=== PATIENT | male | born 1975 | race African-American/Black ===

== ENCOUNTER 2017-09-17 23:25 | Emergency (ER) | payer OTHER ==
[~2017-09-17] VITALS: Ht 180.3 cm; Wt 127.0 kg
--- NOTE | ~2017-09-17 | EKG ---
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 : 1975 Requested By: Camden Cantu Order Number: [id number] MD: Darian Coates Measurements Intervals [place] Rate: 102 P: -2 VT: 134 QRS: -59 QRSD: 90 T: 40 QT: 348 QTc: 454 Interpretive Statements Sinus tachycardia LAD Abnormal R-wave progression, late transition No previous ECG available for comparison Electronically Signed On 09-18-2017 8:08:00 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
[~2017-09-17 23:25] MED LIST: DOXYCYCLINE 10100 M1 PO; DOXYCYCLINE 10100 MG PO; NORCO 5-325 TA1 EACH PO; ULTRAM 50MG TAB50 MG PO
[2017-09-17 23:51] LABS: HEMATOCRIT 44.8 % (42.0-52.0); HEMOGLOBIN 15.4 gm/dL (14.0-18.0); MCH 29.4 pg (26.0-34.0); MCHC 34.3 g/dL (28.0-37.0); MCV 85.5 fL (80.0-100.0); RBC 5.24 mil/uL (4.50-6.00); RDW 14.4 % (10.5-14.5); WBC 6.5 thou/uL (4.0-11.0)
[2017-09-17 23:59] LABS: ANION GAP 6 mmol/L (7-16); BUN 10 mg/dL (7-18); CALCIUM 8.8 mg/dL (8.5-10.1); CHLORIDE 103 mmol/L (98-107); CO2 26 mmol/L (21-32); CREATININE 0.9 mg/dL (0.7-1.3); GLUCOSE 199 mg/dL (74-106); POTASSIUM 3.6 mmol/L (3.5-5.1); SODIUM 135 mmol/L (136-145)
[2017-09-18 00:08] LABS: TROPONIN-I < 0.04 ng/mL (<0.06)
== END 2017-09-18 01:59 | disposition home or self-care (01) ==
LOC: ER 23:25
PROVIDERS: Emergency Medicine
DX: H11.31 Conjunctival hemorrhage, right eye (principal); R00.2 Palpitations

== ENCOUNTER 2021-07-12 22:25 | Emergency (ER) | payer OTHER ==
[~2021-07-12] VITALS: Ht 180.3 cm; Wt 181.4 kg
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
[2021-07-13 00:06] LABS: HEMOGLOBIN 14.2 gm/dL (14.0-18.0); RBC 4.83 mil/uL (4.50-6.00)
[2021-07-13 00:08] LABS: ABSOLUTE NEUTROPHILS 2.9 thou/uL (1.4-8.2); EOSINOPHILS 2.7 % (0.0-3.0); HEMATOCRIT 42.6 % (42.0-52.0); LYMPHOCYTES 38.1 % (24.0-44.0); MCH 29.3 pg (26.0-34.0); MCHC 33.2 g/dL (28.0-37.0); MCV 88.2 fL (80.0-100.0); MONOCYTES 9.8 % (1.0-8.0); PLATELET COUNT 311 thou/uL (150-400); POLYS 48.4 % (36.0-66.0); RDW 14.1 % (10.5-14.5)
[2021-07-13 00:20] LABS: ANION GAP 9 mmol/L (7-16); BUN 10 mg/dL (7-18); CALCIUM 9.3 mg/dL (8.5-10.1); CHLORIDE 105 mmol/L (98-107); CO2 28 mmol/L (21-32); GLUCOSE 128 mg/dL (74-106); POTASSIUM 3.8 mmol/L (3.5-5.1); SODIUM 142 mmol/L (136-145)
[2021-07-13 00:26] LABS: ALBUMIN 3.5 g/dL (3.4-5.0); DIRECT BILIRUBIN < 0.1 mg/dL (<0.1-0.2); LIPASE 52 U/L (73-393); SGOT 22 U/L (15-37); SGPT 42 U/L (16-63); TOTAL BILIRUBIN 0.4 mg/dL (0.2-1.0); TOTAL PROTEIN 6.9 g/dL (6.4-8.2)
[2021-07-13 02:00] VITALS: BP 112/71
[2021-07-13] MEDS ORDERED: MUPIROCIN1 GM TOP (04:36)
== END 2021-07-13 05:30 | disposition home or self-care (01) ==
LOC: ER 22:25
PROVIDERS: Student in an Organized Health Care Education/Training Program
DX: R41.82 Altered mental status, unspecified (principal); L73.9 Follicular disorder, unspecified; J45.909 Unspecified asthma, uncomplicated; I10 Essential (primary) hypertension; J44.9 Chronic obstructive pulmonary disease, unspecified; Z79.899 Other long term (current) drug therapy